=== PATIENT | female | born 1945 | race Hispanic/Latino ===

== ENCOUNTER → 2018-10-31 | Outpatient (REF) | payer MEDICARE ==
[~2018-10-31] MED LIST: AMARYL4 MG PO; ANTIVERT25 MG PO; CARAFATE PO; COLACE100 MG PO; DIABETA5 MG PO; DICLOFENAC75 MG PO; FLEXERIL5 MG PO; FLUARIX QUADRIV1 IN1 IM; FLUARIX QUADRIV1 IN2 IM; FLUZONE SPLT1 M1 IM; FREESTYLELITE100 XX; GLUCOPHAGE1000 MG PO; LEVEMIR FL100 UNIT/M SC; LEVEMIR FLEXPEN IJ; LEVEMIR FLEXPEN SC; LIPITOR10 M1 PO; LISINOPRIL10 MG PO; LOPID600 MG PO; LORTAB 7.57.5 MG PO; MEDDOSEPAK PO; METFORMIN1000 MG PO; METFORMIN500 MG PO; PANTOPRAZOLE SO40 M1 PO; PRILOSEC40 MG PO; PROTONIX40 M2 PO; TRAVATAN0.0041 OP; XALATAN0.005 %; [UNRECOGNIZED DRUG - OTHER] XX; [UNRECOGNIZED DRUG - REMARK] SC
[2018-10-31 10:07] LABS: ALBUMIN 4.5 g/dL (3.2-5.0); ALKALINE PHOSPHATASE 40 u/l (38-126); ANION GAP 13 (6-22 (CALC)); BILIRUBIN, TOTAL 0.7 mg/dL (0.0-1.4); BUN 17 mg/dL (8-23); BUN/CREATININE RATIO 19 (12-20 (CALC)); CALCULATED LDLCHOLESTEROL 40 mg/dL (62-129 (CALC)); CARBON DIOXIDE 30 mmol/l (22-30); CHLORIDE 104 mmol/l (95-108); CHOLESTEROL HDL RATIO 2.1 (<4.4 (CALC)); CREATININE 0.9 mg/dL (0.5-1.0); GFR > 60 ML/MIN (>=60 (CALC)); GFR FOR AFR.AMER. > 60 ML/MIN (>=60 (CALC)); HDL CHOLESTEROL 69 mg/dL (>=40); POTASSIUM 4.9 mmol/l (3.5-5.1); SGOT/AST 23 u/l (9-36); SODIUM 142 mmol/l (137-146); TOTAL CHOLESTEROL 148 mg/dl (0-199); TOTAL PROTEIN 6.8 g/dL (6.3-8.2); VLDL CHOLESTROL 39 mg/dl (0-48 (CALC))
[2018-10-31 10:25] LABS: TRIGLYCERIDES REFLEX TO dLDL 193 mg/dl (30-149)
== END | disposition home or self-care (01) ==
LOC: LAB 08:35
PROVIDERS: ATTEND Internal Medicine Geriatric Medicine
DX: E11.9 Type 2 diabetes mellitus without complications (principal); E78.5 Hyperlipidemia, unspecified

== ENCOUNTER 2020-05-17 21:01 | Inpatient (IN) | payer MEDICARE ==
[~2020-05-17] VITALS: Ht 152.4 cm; Wt 70.3 kg
--- NOTE | 2020-05-17 21:16 | NUR ---
Pt ambulated to room # 6 with steady gait for bedside triage
--- NOTE | 2020-05-17 22:03 | NUR ---
GAVE REPORT TO KELECHI
[2020-05-17 22:05] LABS: HEMATOCRIT 43.9 % (37.0-47.0); HEMOGLOBIN 13.4 g/dl (12.0-16.0); IMMATURE GRANULOCYTES 0.4 % (0.0-5.0); MEAN CELL VOLUME 86.8 fL CALC (80.0-100.0); MEAN CORPUSCULAR HGB 26.5 pG CALC (26.0-32.0); MEAN CORPUSCULAR HGB CONC 30.5 g/dL CAL (32.0-36.0); NEUT# 14.57 thou/uL (2.00-7.15); RED BLOOD COUNT 5.06 mill/uL (4.20-5.60); RED CELL DISTRI WIDTH 15.9 % (11.5-15.5)
[2020-05-17 22:20] LABS: ALBUMIN 4.5 g/dL (3.2-5.0); ALKALINE PHOSPHATASE 67 u/l (38-126); AMYLASE 141 u/l (30-110); ANION GAP 16 (6-22 (CALC)); BILIRUBIN, TOTAL 0.6 mg/dL (0.0-1.4); BUN 22 mg/dL (8-23); BUN/CREATININE RATIO 24 (12-20 (CALC)); CARBON DIOXIDE 27 mmol/l (22-30); CHLORIDE 98 mmol/l (95-108); CREATININE 0.9 mg/dL (0.5-1.0); GFR > 60 ML/MIN (>=60 (CALC)); GFR FOR AFR.AMER. > 60 ML/MIN (>=60 (CALC)); LIPASE 161 u/l (23-300); POTASSIUM 4.7 mmol/l (3.5-5.1); SGOT/AST 41 u/l (9-36); SODIUM 136 mmol/l (137-146); TOTAL PROTEIN 7.4 g/dL (6.3-8.2)
--- NOTE | 2020-05-17 22:25 | NUR ---
PT UNABLE TO LIST MEDICATIONS. STATED SHE FORGOT HER LIST. PT TO XRAY
[2020-05-17 23:17] LABS: URINE BILIRUBIN - DIPSTICK NEGATIVE (NEGATIVE); URINE BLOOD DIPSTICK NEGATIVE (NEGATIVE); URINE COLOR YELLOW; URINE GLUCOSE - DIPSTICK >=1000 mg/dL (NEGATIVE); URINE KETONE 40 mg/dL (NEGATIVE); URINE LEUK ESTERASE NEGATIVE (NEGATIVE); URINE NITRITE - DIPSTICK NEGATIVE (Negative); URINE PH 7.5 (4.5-8.0); URINE PROTEIN - DIPSTICK NEGATIVE (NEG-TRACE); URINE UROBILINOGEN - DIPSTICK 0.2 E.U./dL (0.2)
--- NOTE | 2020-05-17 23:21 | NUR ---
DR VASQUEZ IN TO GO OVER RESULTS AND RE-EVALUATE PT.
--- NOTE | 2020-05-17 23:25 | NUR ---
CT SCAN ORDERED. PT IS PAIN FREE AT THIS TIME XRAY WAS NEGATIVE, PT'S WBC 16
[2020-05-18] VITALS (10 sets, daily range): BP systolic 113–150; BP diastolic 60–76
--- NOTE | 2020-05-18 00:55 | NUR ---
RADIOLOGIST CALLED SPOKE TO DR VASQUEZ AND PT HAS PROBABLE BOWL OBSTRUCTION. DR VASQUEZ IN SPEAKING TO PT AND ABOUT RESULTS AND ADMISSION.
--- NOTE | 2020-05-18 01:55 | NUR ---
PT COVID SCREEN NEGATIVE. BED CALLED FOR.
--- NOTE | 2020-05-18 02:15 | NUR ---
REPORT GIVEN TO HALEY ALDANA.
--- NOTE | 2020-05-18 02:25 | NUR ---
Admission Note Report Given to: HALEY ALDANA Transported by: X Wheelchair Stretcher Transported with: X Nurse Transporter X Patent IV O2 Side Stitcher Location: ICU X [facility]2
--- NOTE | 2020-05-18 02:35 | NUR ---
T ARRIVED TO MED SURG UNIT VIA WC ACCOMPANIED BY ED NURSE. PT APPEARS TO BE N STABLE CONDITION. SELF AMBULATED TO RESTROOM, STANDING SCALE AND TO THE BED /STEADY GAIT. [employer]S IN W/PT OBTAINING WEIGHT, V/S AND ORIENTING PT TO BED, IGHTS, ROOM, CALL SYSTEM AND TV.
--- NOTE | 2020-05-18 02:50 | NUR ---
ASSESSMENT AND VITALS COMPLETE. PT C/O OF ABDIMINAL IN UPPER QUADRANTS. PT IN NO DISTRESS BUT RATES HER PAIN A 3/4. 20 G IN HER RAC IS PATENT WITH NO SWELLING OR REDDNESS. NS RUNNING AT 125 PER HR. PT HAS NO SKIN ISSUES. RESPIRATIONS ARE EVEN AND UNLABORED WITH NO SOB. ALL SAFETY PRECAUTIONS ARE IN PLACE WITH CALL LIGHT WITHIN REACH. WILL CONTINUE TO MONITOR.
--- NOTE | 2020-05-18 02:54 | NUR ---
PT ARRIVED TO MED SURG UNIT VIA WC ACCOMPANIED BY ED NURSE. PT APPEARS TO BE IN STABLE CONDITION. SELF AMBULATED TO RESTROOM, STANDING SCALE AND TO THE BED W/STEADY GAIT. [employer] COORDINATOR'S IN W/PT OBTAINING WEIGHT, V/S AND ORIENTING PT TO BED, LIGHTS, ROOM, CALL SYSTEM AND TV.
--- NOTE | 2020-05-18 04:17 | NUR ---
LAB IN W/PT AT THIS TIME. NO S/O DISTRESS.
[2020-05-18 04:44] LABS: HEMATOCRIT 39.1 % (37.0-47.0); IMMATURE GRANULOCYTES 0.2 % (0.0-5.0); MEAN CELL VOLUME 87.7 fL CALC (80.0-100.0); MEAN CORPUSCULAR HGB 26.9 pG CALC (26.0-32.0); MEAN CORPUSCULAR HGB CONC 30.7 g/dL CAL (32.0-36.0); NEUT# 5.86 thou/uL (2.00-7.15); RED BLOOD COUNT 4.46 mill/uL (4.20-5.60); RED CELL DISTRI WIDTH 15.9 % (11.5-15.5)
[2020-05-18 05:10] LABS: ANION GAP 11 (6-22 (CALC)); BUN 20 mg/dL (8-23); BUN/CREATININE RATIO 23 (12-20 (CALC)); CARBON DIOXIDE 27 mmol/l (22-30); CHLORIDE 105 mmol/l (95-108); CREATININE 0.8 mg/dL (0.5-1.0); GFR > 60 ML/MIN (>=60 (CALC)); GFR FOR AFR.AMER. > 60 ML/MIN (>=60 (CALC)); POTASSIUM 4.1 mmol/l (3.5-5.1); SODIUM 138 mmol/l (137-146)
--- NOTE | 2020-05-18 06:15 | NUR ---
ACCU-CHECK 58, PT NPO, 10% DEXTROSE ADMINISTERED AT THIS TIME. PT ASYMPTOMATIC. WILL CONTINUE TO MONITOR.
--- NOTE | 2020-05-18 06:54 | NUR ---
ACCU-CHECK REASSESSED @176
--- NOTE | 2020-05-18 07:50 | NUR ---
ASSESSMENT IS COMPLETED: IV SITE IS FREE FROM REDNESS OR EDEMA. HR IS REG,PULSES ARE STRONG X4, ABD IS SOFT WITH HYPO BS. BREATH SOUNDS ARE CLEAR,BILATERALLY, NO C/O SOB. TELE MONITOR IN PLACE.
--- NOTE | 2020-05-18 07:58 | NUR ---
DR SMALL CALLED AND WILL GET CONSENT WHEN HE COMES TO SEE THE PT.
[2020-05-18] MEDS ORDERED: LISINOPRIL10 MG PO (08:13)
[2020-05-18] MEDS ORDERED: ATORVASTATIN CA10 MG PO (08:14)
[2020-05-18] MEDS ORDERED: GLIMEPIRIDE4 MG PO (08:14)
[2020-05-18] MEDS ORDERED: METFORMIN HYD1000 MG PO (08:14)
[2020-05-18] MEDS ORDERED: TRULICITY0.75 MG/0. SC (08:29)
--- NOTE | 2020-05-18 09:30 | NUR ---
PT LEFT FOR OR VIA BED
--- NOTE | 2020-05-18 11:53 | NUR ---
PT IN THE OR. RECEIVED A CALL RE: PT WENT FROM HAVING A LAP TO OPEN ON SURGERY.
--- NOTE | 2020-05-18 12:14 | NUR ---
PT REMAINS IN THE OR. FAMILY WAITING.
--- NOTE | 2020-05-18 13:15 | NUR ---
DR SMALL IN TO VISIT WITH FAMILY
--- NOTE | 2020-05-18 13:38 | NUR ---
PAIN MEDICATION WAS GIVEN TO PT IN THE OR.
--- NOTE | 2020-05-18 14:30 | NUR ---
PT RETURNED FROM OR VIA BED, WITH NGT, PALMER , O2 AND DRESSING WITH GALINDO DRAIN.
--- NOTE | 2020-05-18 16:15 | NUR ---
PT IS RESTING IN BED WITH NO DISTRESS NOTED. IV SITE IS FREE FROM REDNESS OR EDEMA.
--- NOTE | 2020-05-18 19:38 | NUR ---
ASSESSMENT AND VITALS COMPLETE. PT IS RESTING QUIETLY IN NO DISTRESS OR STATED PAIN. SURGICAL INCISION COVERED WITH DRY DRESSING AND ABD BINDER. JUN NGUYEN DRAIN IN PLACE WITH GOOD SUCTION AND VISIBLE DRAINAGE. NG TUBE IN PLACE SET ON INTERMITTENT WITH GOOD SUCTION AND DRAINAGE. PULSES ARE GOOD. PTS HEART RATE IS TACHY AT 108. NO SOB. IV PATENT, RUNNING NS AT 125 PER HR. INCENTIVE SPIROMETER PROVIDED WITH INSTRUCTIONS ON HOW AND WHEN TO USE. POC DISCUSSED. CALL CASTILLO PLACED WITHIN REACH. WILL CONTINUE TO MONITOR.
[2020-05-19] VITALS: BP 146/86
--- NOTE | 2020-05-19 00:27 | NUR ---
PT REASSESSED. NO DISTRESS NOTED.ABOMINAL AND NECK PAIN HAS BEEN MANAGED WITH PRN MEDICATION AND SCHELUDED TORADOL. SURGICAL SITE REMAINS CDI. GALINDO DRAINED OF 30ML OF FLUID. IV ZOYSN ADMINISTERED. PT REPOSOTIONED INTO SITTING POSITION. NO SOB. PT ORIENTED X3 WITH NO STATED NEEDS. WILL CONTINUE TO MONITOR.
[2020-05-19 04:02] VITALS: BP 136/82
--- NOTE | 2020-05-19 04:29 | NUR ---
PT RESTING QUIETLY. PT AFEBRILE. PT DENIES STATES SHE HAS NO PAIN OR NEEDS AT THIS TIME. IV PATENT WITH NS RUNNING AT 125 PER HR. NG TUBE IN PLACE SET ON INTERMITTENT SUCTION. ITEMS REMAIN WITHIN REACH; BED LOCKED IN LOW POSITION W/ BEDRAILS UP X 2. CALL CASTILLO REMAINS WIITHIN REACH. PT AGREES TO CALL FOR ANY NEEDS.
[2020-05-19 06:21] LABS: HEMATOCRIT 37.9 % (37.0-47.0); HEMOGLOBIN 11.3 g/dl (12.0-16.0); IMMATURE GRANULOCYTES 0.3 % (0.0-5.0); MEAN CORPUSCULAR HGB 26.8 pG CALC (26.0-32.0); MEAN CORPUSCULAR HGB CONC 29.8 g/dL CAL (32.0-36.0); NEUT# 11.28 thou/uL (2.00-7.15); RED BLOOD COUNT 4.21 mill/uL (4.20-5.60); RED CELL DISTRI WIDTH 16.2 % (11.5-15.5)
[2020-05-19 06:38] LABS: BUN 18 mg/dL (8-23); BUN/CREATININE RATIO 21 (12-20 (CALC)); CHLORIDE 112 mmol/l (95-108); CREATININE 0.8 mg/dL (0.5-1.0); GFR > 60 ML/MIN (>=60 (CALC)); GFR FOR AFR.AMER. > 60 ML/MIN (>=60 (CALC)); POTASSIUM 4.1 mmol/l (3.5-5.1); SODIUM 139 mmol/l (137-146)
[2020-05-19 06:43] LABS: ANION GAP 13 (6-22 (CALC)); CARBON DIOXIDE 18 mmol/l (22-30)
--- NOTE | 2020-05-19 07:30 | NUR ---
REPORT RECEIVED FROM HALEY HUGHES. PT RESTING IN BED SEMI FOWLERS; ALERT AND ORIENTED. C/O MINIMAL PAIN TO ABDOMEN AND SORE THROAT. RESPIRATIONS EVEN AND UNLABORED ON OXYGEN 2L VIA NC; SPO2 99%; OXYGEN REMOVED AND PT NOW ON ROOM AIR; WILL CONTINUE TO MONITOR. NG TUBE TO RIGHT NARE TO LIS; YELLOW GASTRIC CONTENT IN TUBE; DIET REMAINS NPO WITH ICE CHIPS. ABDOMINAL BINDER IN PLACE; GALINDO DRAIN TO RIGHT ABDOMEN WITH BLOODY DRAINAGE; BS ABSENT; DRESSING CDI. PALMER CATHETER DRAINING CLEAR YELLOW URINE IN ADEQUATE AMOUNTS; LEG STRAP INTACT TO RIGHT THIGH. SCD'S TO BLE; IS AT BEDSIDE; PT DEMONSTRATED USE. IV FLUIDS INFUSING WITHOUT DIFFICULTY; IV SITE APPEARS HEALTHY. PLAN OF CARE REVIEWED. PT ENCOURAGED TO VERBALIZE CONCERNS. STATES UNDERSTANDING. SAFETY MEASURES IN PLACE. CALL LIGHT WITHIN REACH.
[2020-05-19 08:01] VITALS: BP 127/74
--- NOTE | 2020-05-19 11:23 | NUR ---
PALMER REMOVED PER ORDER; 375ML OF CLEAR YELLOW URINE EMPTIED PRIOR TO REMOVAL. NG TUBE IRRIGATED WITH 10 CC OF WATER PER ORDER WELL; 200 ML OF YELLOW GASTRIC CONTENT EMPITED. GALINDO EMPTIED OF 20 CC BLOOD. PT ASSISTED TO CHAIR; POSITIONED WITH PILLOWS; TOLERATED VERY WELL. STEPPED IN PLACE; DENIES DIZZINESS WITH POSITION CHANGE. AT BEDSIDE.
--- NOTE | 2020-05-19 13:03 | NUR ---
PT AMBULATED TO BATHROOM TO VOID 150 ML OF CLEAR YELLOW URINE; STEADY GAIT AND NO DIFFICULTIES VOIDING. POSITIONED BACK INTO BED SEMI FOWLERS; PT TOLERATED WELL. SCDS REATTACHED; NG TUBE RECONNECTED TO LIS. REMAINS AT BEDSIDE.
[2020-05-19 15:42] VITALS: BP 143/87
--- NOTE | 2020-05-19 18:00 | NUR ---
PT REQUESTING PAIN MEDICATION FOR 8/10 ABDOMINAL PAIN; SCHEDULED TORADOL GIVEN. PT ASSISTED TO BEDSIDE CHAIR WELL PER REQUEST AFTER AMBULATING TO VOID.
[2020-05-19 18:48] VITALS: BP 147/78
--- NOTE | 2020-05-19 19:02 | NUR ---
REPORT RECEIVED FROM HALEY OLEARY. PT RESTING IN BED, NO S/S OF DISTRESS AT THIS TIME. SAFETY PRECAUTIONS IN PLACE. WILL CONTINUE TO MONITOR.
--- NOTE | 2020-05-19 21:18 | NUR ---
PT RESTING IN BED, ALERT AND ORIENTED. RESPPIRATIONS EVEN AND UNLABORED ON RA. LUNGS SOUND CLEAR. PEDAL PULSES ARE STRONG. PT REPORTS HAVING MILD PAIN, PT MEDICATED PER EMAR ORDERS. PT ASSISTED TO THE BATHROOM AND BACK INTO BED. NG TUBE IRRIGATED PER ORDERS. PT TOLERATED WELL. SAFETY PRECAUTIONS IN PLACE. WILL CONTINUE TO MONITOR.
--- NOTE | 2020-05-19 23:55 | NUR ---
PT RESTING IN BED, ALERT AND ORIENTED. PT ASSISTED TO THE BATHROOM PER REQUEST AND BACK TO BED. PT GATE IS STEADY. SAFETY PRECAUTIONS IN PLACE. WILL CONTINUE TO MONITOR.
--- NOTE | 2020-05-20 04:06 | NUR ---
PT RESTING IN BED FREE OF DISTRESS AT THIS TIME.
[2020-05-20 04:48] LABS: HEMATOCRIT 33.5 % (37.0-47.0); HEMOGLOBIN 9.8 g/dl (12.0-16.0); MEAN CELL VOLUME 90.5 fL CALC (80.0-100.0); MEAN CORPUSCULAR HGB 26.5 pG CALC (26.0-32.0); MEAN CORPUSCULAR HGB CONC 29.3 g/dL CAL (32.0-36.0); RED BLOOD COUNT 3.7 mill/uL (4.20-5.60); RED CELL DISTRI WIDTH 16.6 % (11.5-15.5)
[2020-05-20 05:02] LABS: ALKALINE PHOSPHATASE 43 u/l (38-126); ANION GAP 13 (6-22 (CALC)); BILIRUBIN, TOTAL 0.6 mg/dL (0.0-1.4); BUN 23 mg/dL (8-23); BUN/CREATININE RATIO 34 (12-20 (CALC)); CARBON DIOXIDE 17 mmol/l (22-30); CHLORIDE 115 mmol/l (95-108); CREATININE 0.7 mg/dL (0.5-1.0); GFR > 60 ML/MIN (>=60 (CALC)); GFR FOR AFR.AMER. > 60 ML/MIN (>=60 (CALC)); POTASSIUM 3.8 mmol/l (3.5-5.1); SGOT/AST 31 u/l (9-36); SODIUM 141 mmol/l (137-146)
[2020-05-20 05:07] LABS: ALBUMIN 2.9 g/dL (3.2-5.0); TOTAL PROTEIN 5.2 g/dL (6.3-8.2)
[2020-05-20 05:13] VITALS: BP 149/51
[2020-05-20 08:37] VITALS: BP 151/80
--- NOTE | 2020-05-20 08:37 | NUR ---
RECIEVED REPORT FROM HALEY GUZMAN. PT RESTING IN SEMI FOWLERS POSITION UPON ENTERING ROOM. INTRODUCED SELF TO PT AND DISCUSSED POC. PT IS A/O X3. RESPIRATIONS ARE EVEN AND UNLABORED WITH NO SIGNS OF DISTRESS NOTED. LUNG SOUNDS ARE CLEAR. HEART RHYTHM IS NORMAL. BOWEL SOUNDS ARE ACTIVE IN ALL QUDRANTS. PT HAD HERNIA AND BOWEL RESECTION ON 05/18/2020. MIDLINE DRESSING CDI WITH ANTONIA DRAIN IN PLACE, 25 ML BLOODY OUPUT EMPTIED AT THIS TIME. ABD BINDER RE-APPLIED. NG TUBE REMOVED BY DR SMALL. PT TOLERTATED WELL. RADIAL AND PEDAL PULSES ARE STRONG WITH NORMAL CAPILLARY REFILL. #20 IN RAC RUNNING WITH FLUIDS PER ORDER, SITE APPEARS HEALTHY AND PATENT. PT PRESENTED WITH 1+ EDEMA IN BOTH LEGS AND ARMS. PT DENIES OF ANY PAIN OR DISCOMFORTS AT THIS TIME. ALL SAFETY PRECAUTIONS ARE IN PLACE WITH CALL LIGHT IN REACH. WILL CONTINUE TO MONITOR.
--- NOTE | 2020-05-20 12:36 | NUR ---
PT RESTING IN RECLYINER AT THIS TIME WITH DAUGHTER AT BEDSIDE. RESPIRATIONS ARE EVEN AND UNLABORED WITH NO SIGNS OF DISTRESS. PT COMPLAINS OF 3/10 PAIN TORADOL TO BE ADMINISTERED. ALL SAFETY PRECAUTIONS ARE IN PLACE WITH CALL LIGHT IN REACH. WILL CONTINUE TO MONITOR
--- NOTE | 2020-05-20 14:43 | NUR ---
PT SLEEPING IN LOW FOWLERS POSITION UPON ENTERING ROOM. UPON WAKING REASSESSMENT OF PAIN RESULTING IN 0/10. RESPIRATIONS ARE EVEN AND UNLABORED WITH NO SIGNS OF DISTRESS NOTED. ALL SFAETY PRECAUTIONS ARE IN PLACE WITH CALL LIGHT IN REACH. WILL CONTINUE TO MONITOR
[2020-05-20 15:36] VITALS: BP 150/86
--- NOTE | 2020-05-20 16:19 | NUR ---
PT SITTING UP IN RECYLINER WITH DAUGHTER AT BEDSIDE UPON ENTERING ROOM. PT IS A/OX3. RESPIRATIONS ARE EVEN AND UNLABOREED WITH NO SIGNS OF DISTRESS NOTED.ABD DRESSING REMAINS CDI WITH ABD BINDER IN PLACE. ANTONIA DRAIN IN PLACE WITH ADDITIONAL 25ML BLOODY OUTPUT. PT DENIES ANY PAIN OR DISCOMFORTS AT THIS TIME. ALL SAFETY PRECAUTIONS ARE IN PLACE WITH CALL LIGHT IN REACH. WILL CONTINUE TO MONITOR
--- NOTE | 2020-05-20 18:25 | NUR ---
REPORTED SUGAR 76, NPO STATUS REMAINS. DR ALAMO NOTIFIED OF SUGAR
[2020-05-20 18:52] VITALS: BP 157/84
--- NOTE | 2020-05-20 19:04 | NUR ---
DEXTROSE 10% STANDING ORDER SENT TO [place] . AWAITING VERFIICTION AT THIS TIME
--- NOTE | 2020-05-20 19:06 | NUR ---
REPORT RECEIVED FROM CHEO MOORE. PT RESTING IN BED. NO S/S OF DISTRESS AT THIS TIME. SAFETY PRECAUTIONS IN PLACE. WILL CONTINUE TO MONITOR.
--- NOTE | 2020-05-20 19:45 | NUR ---
PT RESTING IN BED, ALERT AND ORIENTED. RESPIRATIONS EVEN AND UNLABORED ON RA. LUNGS SOUND CLEAR. PEDAL PULSES ARE WEAK. PT DENIES ANY PAIN OR DISCOMFORT AT THIS TIME. PT ASSISTED TO THE RESTROOM AND BACK INTO BED. 35CC EMPTIED FROM DRAIN AT THIS TIME, SMALL CLOTS NOTED. DRESSING TO ABDOMEN CDI, ABDOMINAL BINDER IN PLACE. PT PROVIDED WITH ICE CHIPS PER REQUEST. SAFETY PRECAUTIONS IN PLACE. WILL CONTINUE TO MONITOR.
--- NOTE | 2020-05-20 22:02 | NUR ---
35CC EMPTIED FROM DRAIN, LARGE CLOT NOTED IN BULB.
[2020-05-21] VITALS (7 sets, daily range): BP systolic 141–181; BP diastolic 81–90
--- NOTE | 2020-05-21 00:50 | NUR ---
IV LEAKING, NEW IV STARTED #22 RFA, PT TOLERATED WELL, #20 RAC REMOVED IV CATHETER INTACT
--- NOTE | 2020-05-21 03:37 | NUR ---
PT RESTING IN BED, NO S/S OF DISTRESS AT THIS TIME. WILL CONTINUE TO MONITOR.
--- NOTE | 2020-05-21 07:00 | NUR ---
REPORT RECEIVED FROM HALEY ELAINE;PT APPEARS TO BE SLEEPING IN SEMI FOWLERS POSITION;NO S/S OF DISTRESS NOTED;RESPIRATIONS EVEN AND UNLABORED ON RA;IV SITE PATENT;ACCUCHECK 76, NO COVERAGE NEEDED;ALL SAFETY PRECAUTIONS REMAIN IN PLACE WITH BED IN THE LOWEST POSITION AND CALL LIGHT IN REACH;WILL CONTINUE TO MONITOR
--- NOTE | 2020-05-21 08:30 | NUR ---
PT RESTING IN SEMI FOWLERS POSITION,A&O X3;VS OBTAINED AND ASSESSMENT COMPLETED,CURRENT BP 181/90 HR 83.PT TO BE MEDICATED WITH SCHEDULED MORNING MEDICATIONS;PT DENIES ANY CURRENT PAIN OR DISCOMFORTS,PAIN SCALE AND REPORTING EDUCATED;PT POD #3 WITH MIDLINE INCISION DRESSING CDI;ANTONIA DRAIN TO RUQ DRAINING SMALL AMOUNT OF BLOODY DRAINAGE;ABDOMEN DISTENDED/SOFT ON PALPATION AND HYPOACTIVE IN ALL 4 QUADRANTS;ABD BINDER IN PLACE;RESPIRATIONS EVEN AND UNLABORED ON RA,CLEAR LUNG SOUNDS;I.S. AT BEDSIDE AND PT EDUCATED ON USE 10X PER HOUR;STRONG PEDAL PULSES;#22G TO RFA INFUSING NS @ KVO PER ORDER,SITE APPEARS HEALTHY;PT DENIES ANY ADDITIONAL NEEDS AT THIS TIME AND IS ENCOURAGED TO CALL FOR ASSISTANCE IF NEEDED;FALL PRECAUTIONS IN PLACE WITH CALL LIGHT IN REACH;WILL CONTINUE TO MONITOR
--- NOTE | 2020-05-21 08:34 | NUR ---
AT BEDSIDE DISCUSSING POC WITH PT.
--- NOTE | 2020-05-21 09:20 | NUR ---
PT OOB RESTING IN RECLINER;BP RE-CHECK 170/89;PT DENIES ANY CURRENT NEEDS;CALL LIGHT IN REACH;WILL CONTINUE TO MONITOR
--- NOTE | 2020-05-21 09:58 | NUR ---
AT BEDSIDE DISCUSSING POC.
--- NOTE | 2020-05-21 10:36 | NUR ---
DRESSING TO ABD REMOVED BY ;16 AINSLEY NOTED;SITE RE-DRESSED WITH DRY DRESSING;PT TOLERATED WELL;WILL CONTINUE TO MONITOR
--- NOTE | 2020-05-21 11:45 | NUR ---
PT RESTING IN SEMI FOWLERS POSITION;RESPIRATIONS EVEN AND UNLABORED ON RA;PT DENIES ANY CURRENT PAIN OR DISCOMFORTS;DRESSINGS TO ABD REMAIN CDI AND ANTONIA DRAIN PATENT;IV FLUIDS CONTINUE TO INFUSE WITH EASE PER ORDER AND SCHEDULED TORADOL ADMINISTERED AT THIS TIME;ASSESSMENT REMAINS UNCHANGED;PT ENCOURAGED TO CALL FOR ASSISTANCE IF NEEDED;FALL PRECAUTIONS IN PLACE WITH CALL LIGHT IN REACH;WILL CONTINUE TO MONITOR
--- NOTE | 2020-05-21 15:30 | NUR ---
PT OOB RESTING IN RECLINER WITH SPOUSE AT BEDSIDE;RESPIRATIONS EVEN AND UNLABORED ON RA;PT DENIES ANY CURRENT PAIN OR DISCOMFORTS;IV FLUIDS CONTINUE TO INFUSE WITH EASE PER ORDER;ABDOMINAL BINDER REMAINS IN PLACE WITH ANTONIA DRAIN PATENT;ANTONIA DRAIN EMPTIED OF 20CC OF BLOODY DRAINAGE;PT DENIES ANY ADDITIONAL NEEDS AT THIS TIME;ENCOURAGED TO CALL FOR ASSISTANCE IF NEEDED;CALL LIGHT IN REACH;WILL CONTINUE TO MONITOR
--- NOTE | 2020-05-21 20:00 | NUR ---
MEDICATED PT FOR ELEVATED BP 179/80. PT APPEARS STABLE AT THIS TIME, WATCHING TV. NURSE FE IN WITH PT ALSO AT THIS TIME.
--- NOTE | 2020-05-21 20:00 | NUR ---
PATIENT ALERT, VERBAL, ABLE TO MAKE NEEDS KNOWN-ABLE TO TOLERATE MEDS WELL WHOLE. CONT OF BOWEL AND BLADDER--ABLE TO AMBULATE TO AND FROM BATHROOM IN ROOM WITH MINIMAL ASSIST. REQUESTED PRN PERCOCET AT HS FOR C/OS OF LEFT ABDOMEN PAIN--POSITIVE EFFECT. MIDLINE INCISION WITH EDGES APPROX--AINSLEY INTACT--DRGS C/D/I. ANTONIA DRAIN PATENT TO RUQ OF ABDOMEN--25ML OF BRIGHT RED BLOOD DRAINAGE OBTAINED. ABDOMINAL BINDER IN USE FOR COMFORT AND STABILIZATION OF ABDOMINAL INCISION AND FOR PATIENT COMFORT WITH MOVEMENT. PIV SITE PATENT TO RIGHT FOREARM--SITE UNREMARKABLE--NS INFUSING @ 10ML/HR WITHOUT DIFFICULTY--TOLERATING FLUIDS WELL. NO S/S OF GLYCEMIC REACTION NOTED--CONT ON DIABETIC DIET--COMPLIANT. SCDS IN PLACE ORDERED. PATIENT NOTED TO HAVE AN EPISODE OF HYPERTENSION EARLIER IN SHIFT--178/90--PRN IV HYDRALAZINE GIVEN ORDERED--RECHECK OF 168/81--WILL CONT TO MONITOR BP FOR STABILITY. WILL CONT TO MONITOR FOR ANY FURTHER CHANGES.
--- NOTE | 2020-05-22 | NUR ---
PATIENT RESTING SOUNDLY IN BED WITH EYES CLOSED AT THIS TIME. B/P MAINTAINING @ 165/78. NO APPARENT DISTRESS NOTED. 12AM BS @ 103--NO S/S OF GLYCEMIC REACTION NOTED. SCDS IN PLACE. WILL CONT TO MONITOR FOR ANY FURTHER CHANGES.
[2020-05-22 04:00] VITALS: BP 166/90
--- NOTE | 2020-05-22 04:00 | NUR ---
PATIENT RESTING SOUNDLY IN BED WITH EYES CLOSED AT THIS TIME. NO APPARENT DISTRESS NOTED. ANTONIA DRAIN PATENT TO RUQ--35ML OF BRIGHT RED BLOOD DRAINAGE EMPTIED FROM BULB. FOR A SHIFT TOTAL OF 60ML THUS FAR. PIV SITE PATENT TO RIGHT FOREARM--FLUSHES WELL--SITE UNREMARKABLE--NS INFUSING WITHOUT DIFFICULTY @ 10ML/HR--TOLERATING FLUIDS WELL. B/P MAINTAINING @ 166/90--ASYMPTOMATIC. WILL CONT TO MONITOR FOR ANY FURTHER CHANGES.
[2020-05-22 05:15] LABS: HEMATOCRIT 31.4 % (37.0-47.0); HEMOGLOBIN 9.6 g/dl (12.0-16.0); MEAN CELL VOLUME 87.7 fL CALC (80.0-100.0); MEAN CORPUSCULAR HGB 26.8 pG CALC (26.0-32.0); MEAN CORPUSCULAR HGB CONC 30.6 g/dL CAL (32.0-36.0); RED BLOOD COUNT 3.58 mill/uL (4.20-5.60); RED CELL DISTRI WIDTH 16.4 % (11.5-15.5)
[2020-05-22 05:32] LABS: ALBUMIN 3.1 g/dL (3.2-5.0); ALKALINE PHOSPHATASE 62 u/l (38-126); ANION GAP 13 (6-22 (CALC)); BILIRUBIN, TOTAL 0.8 mg/dL (0.0-1.4); BUN 16 mg/dL (8-23); BUN/CREATININE RATIO 27 (12-20 (CALC)); CARBON DIOXIDE 18 mmol/l (22-30); CHLORIDE 111 mmol/l (95-108); CREATININE 0.6 mg/dL (0.5-1.0); GFR > 60 ML/MIN (>=60 (CALC)); GFR FOR AFR.AMER. > 60 ML/MIN (>=60 (CALC)); POTASSIUM 3.4 mmol/l (3.5-5.1); SGOT/AST 26 u/l (9-36); SODIUM 139 mmol/l (137-146); TOTAL PROTEIN 5.5 g/dL (6.3-8.2)
--- NOTE | 2020-05-22 07:05 | NUR ---
REPORT RECEIVED FROM HALEY MIRAMONTES;PT RESTING IN SEMI FOWLERS POSITION;INTRODUCED SELF TO PT AND POC DISCUSSED;PT DENIES ANY CURRENT PAIN OR DISCOMFORTS;RESPIRATIONS EVEN AND UNLABORED ON RA;IV SITE PATENT INFUSING NS @ KVO PER ORDER;PT ENCOURAGED TO CALL FOR ASSISTANCE IF NEEDED;FALL PRECAUTIONS IN PLACE WITH BED IN THE LOWEST POSITION AND CALL LIGHT IN REACH;WILL CONTINUE TO MONITOR
--- NOTE | 2020-05-22 07:50 | NUR ---
PT OOB RESTING IN RECLINER,A&O X3;VS OBTAINED AND ASSESSMENT COMPLETED;PT DENIES ANY CURRENT PAIN OR DISCOMFORTS;PT POD #4 BOWEL RESECTION WITH HERNIA REPAIR;RESPIRATIONS EVEN AND UNLABORED ON RA,CLEAR LUNG SOUNDS;I.S. AT BEDSIDE AND PT ENCOURAGED USE 10X PER HOUR;ABDOMEN DISTENDED/SOFT ON PALPATION AND ACTIVE IN ALL 4 QUADRANTS;MIDLINE INCISION DRESSING CDI, ANTONIA DRAIN TO RUQ DRAINING LL AMOUNT OF BLOODY DRAINAGE;STRONG PEDAL PULSES;#22G TO RFA INFUSING NS @ KVO PER ORDER,SITE APPEARS HEALTHY;PT DENIES ANY ADDITIONAL NEEDS AT THIS TIME AND IS ENCOURAGED TO CALL FOR ASSISTANCE IF NEEDED;FALL PRECAUTIONS IN PLACE WITH BED IN THE LOWEST POSITION AND CALL LIGHT IN REACH;WILL CONTINUE TO MONITOR
[2020-05-22 07:51] VITALS: BP 177/80
--- NOTE | 2020-05-22 08:37 | NUR ---
AT BEDSIDE DISCUSSING POC.
--- NOTE | 2020-05-22 13:40 | NUR ---
PT RESTING IN SEMI FOWLERS POSITION;RESPIRATIONS EVEN AND UNLABORED ON RA; PT DENIES ANY CURRENT PAIN OR NEEDS;IV SITE PATENT AND INFUSING NS WITH EASE PER ORDER;MIDLINE DRESSING REMAINS CDI AND ANTONIA DRAIN REMAINS PATENT;PT DENIES ANY ADDITIONAL NEEDS AND IS ENCOURAGED TO CALL FOR ASSISTANCE IF NEEDED;CALL LIGHT IN REACH;WILL CONTINUE TO MONITOR
[2020-05-22 13:58] VITALS: BP 151/86
[2020-05-22 15:25] VITALS: BP 149/88
--- NOTE | 2020-05-22 15:45 | NUR ---
PT RESTING IN SEMI FOWLERS POSITION WATCHING TV;RESPIRATIONS EVEN AND UNLABORED ON RA;PT DENIES ANY CURRENT PAIN OR NEEDS;IV FLUIDS CONTINUE TO INFUSE WITH EASE PER ORDER TO LFA;ANTONIA DRAIN EMPTIED OF 60CC OF BLOODY DRAINAGE;PT DENIES ANY ADDITIONAL NEEDS AND IS ENCOURAGED TO CALL FOR ASSISTANCE IF NEEDED;ASSESSMENT REMAINS UNCHANGED;ENCOURAGED TO CALL FOR ASSISTANCE IF NEEDED;CALL LIGHT IN REACH;WILL CONTINUE TO MONITOR
[2020-05-22 19:00] VITALS: BP 159/94
--- NOTE | 2020-05-22 19:00 | NUR ---
REPORT RECEIVED FROM Robby GLYNN LPN, CARE OF PT ASSUMED AT THIS TIME.
--- NOTE | 2020-05-22 20:00 | NUR ---
PT LAYING IN BED, PHYSICAL ASSESMENT COMPLETE. REPORTS ABD PAIN 02/12. REQUEST PAIN MEDICATION. PRN PERCOCET ADMINSITERED, SEE E-MAR. SCHEDULED MEDICATIONS ADMINISTERED, SEE E-MAR. BEDSIDE FINGERSTICK GLUCOSE 144mg/dl, NO INSULIN PER SLIDING SCALE ALGORITHM. ABD DRESSING IS CLEAN, DRY AND INTACT WITH ABD BINDER SECURED OVER TOP. RIGHT SIDED ANTONIA DRAIN SECURED, UNKINKED, AND UNOBSTRUCTED WITH BULB SUCTION ENGAGED. OUTPUT IS SANGUINEOUS W/ SMALL CLOTS. PLAN OF CARE REVIEWED. PT DENIES QUESTIONS AND VERBALIZES UNDERSTANDING. PROVIDED PT W/ DIET COLA PER HER REQUEST, DENIES ANY FURTHER NEEDS. CALL CASTILLO WITHIN REACH, AGREES TO CALL PRN.
--- NOTE | 2020-05-23 00:05 | NUR ---
PT APPEARS TO BE SLEEPING COMOFORTABLY, NO APPARENT DISTRESS, RESPIRATIONS REGUALR AND UNLABORED. CALL CASTILLO REMAINS WITHIN REACH.
--- NOTE | 2020-05-23 02:11 | NUR ---
PT. APPEARS TO BE SLEEPING COMFORTABLY, NO APPARENT DISTRESS, RESPIRATIONS REGULAR AND UNLABORED. CALL CASTILLO WITHIN REACH.
[2020-05-23 03:30] VITALS: BP 189/93
[2020-05-23 04:00] VITALS: BP 185/92
[2020-05-23 04:30] VITALS: BP 152/91
--- NOTE | 2020-05-23 05:10 | NUR ---
PT APPEARS TO BE SLEEPING COMFORTABLY, WAKES EASILY. 60ML SANGUINEOUS DRAINAGE WITH CLOTS EMPTIED FROM ANTONIA DRAIN. BULB SUCTION RE-ENGAGED. PT DENIES FURTHER NEEDS, CALL CASTILLO WITHIN REACH, AGREES TO CALL PRN.
[2020-05-23 07:43] VITALS: BP 173/98
--- NOTE | 2020-05-23 07:43 | NUR ---
RECIEVED REPORT FROM HALEY HAAS. PT RESTING IN SEMI FOWLERS POSITION UPON ENTERING ROOM. INTRODUCED SELF TO PT AND DISCUSSED POC.PT IS A/OX3 AND AMBULATORY. ASESSMENT AND VITALS COMPLETED.BP 173/98, HR 88, O2 98% ON ROOM AIR. MORNING BP MEDICTAIONS TO BE ADMINISTYERED.RESPIRATIONS ARE EVEN AND UNLABORED WITH NO SIGNS OF DISTRESS. LUNG SOUNDS ARE CLEAR. HEART RHYTHM IS NORMAL. BOWEL SOUNDS HYPOACTIVE, LAST REPORTED BM 05/22/2020. PT INFORMS WTRITTER THAT SHE IS PASSING GAS. RADIAL AND PEDAL PULSES ARE STRONG WITH NORMAL CAPILLARY REFILL. #22 IN RFA FLUSHED, SITE APPEARS HEALTHY AND PATENT. PT HAS BOWEL RESECTION AND HERNIA REPAIR ON 05/18/[address] SMALL. DRESSING CDI WITH ANTONIA DRAIN IN PLACE. 20CC OF BLOODY OUTPUT, SUCTION REAPPLIED. PT COMPLAINS OF 5/10 PAIN, PERCOCET TO BE ADMINISTERED. PT DENEIS ANY ADDITIONAL NEEDS AT THIS TIME. ALL SAFETY PRECAUTIONS ARE IN PLACE WITH CALL LIGHT IN REACH. WILL CONTINUE TO MONITOR.
--- NOTE | 2020-05-23 09:20 | NUR ---
DR BURROUGHS AT BEDSIDE DISCUSSING POC WITH PT
[2020-05-23] MEDS ORDERED: KEFLEX500 MG PO (10:09)
[2020-05-23] MEDS ORDERED: HYDROCO/APAP1 TA9 PO ×2 (10:10)
[2020-05-23 10:58] VITALS: BP 176/88
--- NOTE | 2020-05-23 10:59 | NUR ---
REASSESSMENT OF BP RESUTLING IN 176/88, HR 94. RESPIRATION SARE EVEN AND UNLABORED WITH NO SIGNS OF DISTRESS NOTED. APRESOLINE TO BE ADMINISTERED BY HALEY YING. ALL SAEFTY PRECAUTIONS ARE IN PLACE WITH CALL LIGHT IN REACH. WILL CONTINUE TO MONITOR
--- NOTE | 2020-05-23 11:10 | NUR ---
APRESOLINE 20MG IV ADMINSTERED BY DEONNA.
--- NOTE | 2020-05-23 12:32 | NUR ---
REASSESSMENT OF BP AT THIS TIME RESULTING IN 152/84. PT EDUCTAED ON DISCHARGE INSTRUCTIONS. AND NEW MEDICATIONS KEFLEX AND PERCOCET THAT WAS SENT TO [facility] IN [facility]. PT VERBALIZED UNDERSTANDING. IV REMOVED WITH CATHATER STILL INTACT. PT TOLERATED WELL.PT AWAITING FOR TRANSPORTATION HOME BY ALL SAFETY PRECAUTIONS REMAIN IN PLACE WITH CALL LIGHT IN REACH. WILL CONTINUE TO MONITOR
[2020-05-23 12:43] VITALS: BP 152/84
--- NOTE | 2020-05-23 14:47 | NUR ---
PT note Patient is screened and tells me she has no difficulties with funcitonal activities. I encouraged her to follow up with medical for any future needs
--- NOTE | 2020-05-23 15:40 | NUR ---
Discharge instructions given. Patient verbalizes understanding of same. Discharged in stable condition via Wheelchair to Home with family. All belongings sent with pt. PT DISCHARGED IN STABLE CONDITION ACCOMPAINED BY WRITTER VIA WHEELCHAIR. PT DISCHARGED WITH ALL BELONGINGS AND DISCHARGE INSTRUCTIONS.
[2020-06-09] MEDS ORDERED: TRULICITY0.75 MG/0. SC (10:08)
== END 2020-05-23 15:39 | disposition home or self-care (01) | DRG 331 ==
LOC: ED 21:01 → ED-I 05-18 01:03 → ED 05-18 01:10 → MS2 05-18 01:11
PROVIDERS: Family Medicine; Nurse Practitioner Family; ADMIT Surgery; ATTEND Surgery
PROC: 0WQF0ZZ Repair Abdominal Wall, Open Approach (ICD-10-PCS; principal; 2020-05-18)
PROC: 0DB80ZZ Excision of Small Intestine, Open Approach (ICD-10-PCS; 2020-05-18)
PROC: 0DN80ZZ Release Small Intestine, Open Approach (ICD-10-PCS; 2020-05-18)
PROC: 0WJG4ZZ Inspection of Peritoneal Cavity, Percutaneous Endoscopic Approach (ICD-10-PCS; 2020-05-18)
DX: K43.0 Incisional hernia with obstruction, without gangrene (principal); K66.0 Peritoneal adhesions (postprocedural) (postinfection); E11.9 Type 2 diabetes mellitus without complications; I10 Essential (primary) hypertension; E78.5 Hyperlipidemia, unspecified; K29.70 Gastritis, unspecified, without bleeding; Z79.4 Long term (current) use of insulin; Z20.828 Contact with and (suspected) exposure to other viral communicable diseases
CPT/HCPCS: J0131; J1100; J1650; Q9967; S0164

== ENCOUNTER 2020-06-12 08:15 | Day surgery (SDC) | payer MEDICARE ==
[~2020-06-12] VITALS: Ht 152.4 cm; Wt 63.5 kg
[~2020-06-12 08:15] MED LIST changes: +ATORVASTATIN CA10 MG PO; +GLIMEPIRIDE4 MG PO; +HYDROCO/APAP1 TA9 PO; +KEFLEX500 MG PO; +METFORMIN HYD1000 MG PO; +TRULICITY0.75 MG/0. SC
[2020-06-12 10:38] VITALS: BP 123/74
== END 2020-06-12 10:55 | disposition home or self-care (01) ==
LOC: ORM 08:15
PROVIDERS: ATTEND Surgery
PROC: 2W13X6Z Compression of Abdominal Wall using Pressure Dressing (ICD-10-PCS; principal; 2020-06-12)
DX: S31.109A Unspecified open wound of abdominal wall, unspecified quadrant without penetration into peritoneal cavity, initial encounter (principal); E11.9 Type 2 diabetes mellitus without complications; I10 Essential (primary) hypertension; E78.5 Hyperlipidemia, unspecified; X58.XXXA Exposure to other specified factors, initial encounter; Z90.49 Acquired absence of other specified parts of digestive tract; Z79.84 Long term (current) use of oral hypoglycemic drugs; Z79.899 Other long term (current) drug therapy; Z20.828 Contact with and (suspected) exposure to other viral communicable diseases